=== PATIENT | female | born 1950 | race Caucasian/White ===

== ENCOUNTER → 2021-07-20 | Outpatient (CLI) | payer OTHER ==
--- NOTE | 2021-07-21 08:46 | RAD ---
Exam Date: 07/20/2021 3:39 PM US EXT NON VASC LEFT Indication: Reason: CONTUSION OF LEFT LOWER LEG, LOCALIZED SWELLING / Spl. Instructions: / History: . Impression: Sonographic images were obtained at the area of interest near the anterior aspect of the left knee. In this region, there is a 3.5 x 0.6 x 2.7 cm complex subcutaneous collection which is nonspecific bu t likely represents a hematoma, in light of the provided history. Abscess or seroma would also be in the differential. Continued clinical follow-up, and if indicated, imaging follow-up, to resolution is recommended. Electronically signed by: Logan Tripathi MD (07/21/2021 8:44 AM) [id number]
== END ==
LOC: US 15:32
PROVIDERS: ATTEND Nurse Practitioner Family
DX: S80.12XD Contusion of left lower leg, subsequent encounter (principal); R22.42 Localized swelling, mass and lump, left lower limb
CPT/HCPCS: 76881